=== PATIENT | female | born 1935 | race Caucasian/White ===

== ENCOUNTER 2018-05-05 06:41 | Inpatient (IN) | payer MEDICARE ==
[~2018-05-05] VITALS: Ht 167.6 cm; Wt 72.1 kg
[~2018-05-05 06:41] MED LIST: AMIO200 PO; AMLO10 PO; ASCO500 PO; ASPI81EC PO; ATOR40TA PO; Aspirin EC81 MG PO; Benicar40 MG PO; CALCIT950 PO; CARV6.25 PO; CHLO25B PO; CLON.1 PO; CLON.2 PO; DILT120 PO; DOC250 PO; ERGO400 PO; FERSU250ER PO; FLUSAL2505 IH; FURO20 PO; HYDACE5325 PO; LEVFLO500 PO; METO25ER PO; METO50 PO; MULTIVITAMIN; OLME20 PO; OMEP40CA12 PO; PANT40 PO; PRAV20 PO; PRED20 PO; PRENATAL MULTI1 EAC3 PO; SIMV40 PO; THIA100 PO; ZOLP5 PO
[2018-05-05] MEDS ORDERED: OLME20 PO (07:10)
[2018-05-05] MEDS ORDERED: PANT40 PO (07:10)
[2018-05-05] MEDS ORDERED: NIFE90ER PO (07:10)
[2018-05-05] MEDS ORDERED: FURO40 PO (07:11)
[2018-05-05] MEDS ORDERED: Pravastatin Sod40 MG PO (07:12)
[2018-05-05] MEDS ORDERED: Hair, Skin & N1 EACH PO (07:12)
[2018-05-05] MEDS ORDERED: CALCA400CH (07:14)
[2018-05-05 07:43] LABS: BASOPHILS ABSOLUTE AUTO 0.02 K/mm3 (0.00-0.23); BASOPHILS PERCENT AUTO 0 % (0-2); EOSINOPHILS ABSOLUTE AUTO 0.02 K/mm3 (0.00-0.68); EOSINOPHILS PERCENT AUTO 0 % (0-6); Hemoglobin 13.6 g/dL (11.5-16.0); IMMATURE GRAN ABSOLUTE AUTO 0.02 K/mm3 (0.00-0.10); IMMATURE GRAN PERCENT AUTO 0 % (0-1); LYMPHOCYTES ABSOLUTE AUTO 0.47 K/mm3 (0.84-5.20); LYMPHOCYTES PERCENT AUTO 7 % (21-46); MONOCYTES ABSOLUTE AUTO 0.66 K/mm3 (0.16-1.47); MONOCYTES PERCENT AUTO 9 % (4-13); Mean Corpuscular HGB 31.9 pg (26.0-34.0); Mean Corpuscular Volume 94 fL (80-100); Mean Platelet Volume 10.5 fL (9.1-12.4); NEUTROPHILS ABSOLUTE AUTO 5.82 K/mm3 (1.96-9.15); NEUTROPHILS PERCENT AUTO 83 % (41-73); Platelet Count 187 K/mm3 (150-400); RDW Coefficient Variation 13.4 % (11.7-14.2); RDW Standard Deviation 46.4 fL (35.1-46.3); Red Blood Cell Count 4.26 M/mm3 (3.80-5.20); White Blood Cell Count 7.01 K/mm3 (4.00-11.30)
[2018-05-05 08:02] LABS: Alanine Aminotransfer (ALT/SGP 22 U/L (12-78); Albumin, Blood 3.8 g/dL (3.4-5.0); Alk Phos 85 U/L (50-136); Anion Gap 10 mmol/L (6-16); Aspartate Aminotrans (AST/SGOT 24 U/L (12-37); Bilirubin, Total 0.6 mg/dL (0.1-1.0); Blood Urea Nitrogen 19 mg/dL (8-24); CO2, Blood 23 mmol/L (21-32); Calcium, Blood 9.2 mg/dL (8.5-10.1); Chloride, Blood 105 mmol/L (98-108); Creatinine, Blood 0.83 mg/dL (0.40-1.00); Glomerular Filtration Rate >60 (60-); Glucose, Blood 110 mg/dL (70-99); Potassium, Blood 2.9 mmol/L (3.5-5.5); Sodium, Blood 138 mmol/L (136-145); Total Protein, Blood 7.8 g/dL (6.4-8.2)
[2018-05-05 08:45] LABS: Source, Urine Clean Catch
[2018-05-05 08:48] LABS: Bilirubin, Urine Neg (Neg); Blood, Urine 3+ (Neg); Glucose Qualitative, Urine Neg (Neg); Ketones, Urine 3+ (Neg); Leukocyte Esterase, Urine 3+ (Neg); Nitrite, Urine Pos (Neg); Protein, Urine 2+ (Neg); Urobilinogen, Urine NORM (Normal)
[2018-05-05 08:57] LABS: Appearance, Urine Hazy (Clear); Color, Urine Yellow (P-Yellow)
[2018-05-05 09:12] LABS: Granular Casts 0-2 /lpf (0)
[2018-05-05 09:25] LABS: Hyaline Casts Rare /lpf (0-2)
[2018-05-05 09:28] LABS: Bacteria Many /hpf
[2018-05-05 09:35] LABS: White Blood Cells, Urine 25-50 /hpf (0-5)
[2018-05-05 09:42] LABS: Squamous Epithelial Cells Mod /hpf (Few)
[2018-05-05 09:43] LABS: Mucus Light (0-Heavy)
[2018-05-05] MEDS ORDERED: METO50 PO (13:26)
[2018-05-05] MEDS ORDERED: DOCU100 PO (13:31)
--- NOTE | 2018-05-05 18:20 | NUR ---
SHIFT SUMMARY PT HAS DONE WELL SINCE ARRIVAL TO UNIT. ABD MILD DISTENTION, SOFT HYPOACTIVE BOWEL TONES. K-RIDER RUNNING IVP. HAS HAD NO NAUSEA SINCE ARRIVAL TO UNIT. NPO SINCE ARRIVAL TO UNIT. SURGICAL CONSULT CALLED TO DR ALMANZA ANSWERING SERVICE.
[2018-05-06 04:36] LABS: BASOPHILS ABSOLUTE AUTO 0.02 K/mm3 (0.00-0.23); BASOPHILS PERCENT AUTO 1 % (0-2); EOSINOPHILS ABSOLUTE AUTO 0.01 K/mm3 (0.00-0.68); EOSINOPHILS PERCENT AUTO 0 % (0-6); Hematocrit 39.5 % (33.0-51.0); IMMATURE GRAN ABSOLUTE AUTO 0.01 K/mm3 (0.00-0.10); IMMATURE GRAN PERCENT AUTO 0 % (0-1); LYMPHOCYTES ABSOLUTE AUTO 0.89 K/mm3 (0.84-5.20); LYMPHOCYTES PERCENT AUTO 21 % (21-46); MONOCYTES ABSOLUTE AUTO 0.68 K/mm3 (0.16-1.47); MONOCYTES PERCENT AUTO 16 % (4-13); Mean Corpuscular HGB 32.3 pg (26.0-34.0); Mean Corpuscular HGB Conc 32.9 g/dL (31.5-36.5); Mean Platelet Volume 10.6 fL (9.1-12.4); NEUTROPHILS ABSOLUTE AUTO 2.67 K/mm3 (1.96-9.15); NEUTROPHILS PERCENT AUTO 62 % (41-73); Platelet Count 161 K/mm3 (150-400); RDW Coefficient Variation 13.9 % (11.7-14.2); RDW Standard Deviation 50.1 fL (35.1-46.3); Red Blood Cell Count 4.03 M/mm3 (3.80-5.20); White Blood Cell Count 4.28 K/mm3 (4.00-11.30)
[2018-05-06 04:46] LABS: Mean Corpuscular Volume 98 fL (80-100)
[2018-05-06 04:52] LABS: Magnesium, Blood 2.1 mg/dL (1.6-2.4)
[2018-05-06 04:54] LABS: Alanine Aminotransfer (ALT/SGP 21 U/L (12-78); Albumin, Blood 3.2 g/dL (3.4-5.0); Albumin/Globulin Ratio 0.9 (0.8-1.8); Alk Phos 68 U/L (50-136); Anion Gap 10 mmol/L (6-16); Aspartate Aminotrans (AST/SGOT 24 U/L (12-37); Bilirubin, Total 0.3 mg/dL (0.1-1.0); Blood Urea Nitrogen 10 mg/dL (8-24); Bun/Creatinine Ratio 13.9 (12.0-20.0); CO2, Blood 21 mmol/L (21-32); Calcium, Blood 8.4 mg/dL (8.5-10.1); Chloride, Blood 111 mmol/L (98-108); Creatinine, Blood 0.72 mg/dL (0.40-1.00); Globulin, Blood 3.4 g/dL (2.2-4.0); Glomerular Filtration Rate >60 (60-); Glucose, Blood 75 mg/dL (70-99); Phosphorus, Blood 2.7 mg/dL (2.5-4.9); Sodium, Blood 142 mmol/L (136-145); Total Protein, Blood 6.6 g/dL (6.4-8.2)
--- NOTE | 2018-05-06 05:33 | NUR ---
SUMMARY: NO ACUTE CHANGE TONIGHT. ELEVATED BP AT SHIFT START AND TELE APPLIED IN ORDER TO GIVE IV LOPRESSOR. PT ASYMPTOMATIC, VSS THIS AM. 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 SEE TELE STRIPS IN PT CHART. PT NSR, HR 70'S THIS AM. PT HAS DENIED N/V, PAIN. DID HAVE 1 LIQUID BM, UNABLE TO COLLECT. IV FLUIDS INFUSING. NO SAFETY CONCERNS AT THIS TIME.
--- NOTE | 2018-05-06 18:09 | NUR ---
SHIFT SUMMARY PT KEPT NPO EXCEPT FEW ICE CHIPS. URINE OUTPUT INCREASED IN AFTERNOON. PLEASANT AND COOPERATIVE.
--- NOTE | 2018-05-07 07:20 | NUR ---
pt sitting up on edge of the bed getting a neb tx exp wheezing and harsh cough pain to chest with cough req pain meds when avail
--- NOTE | 2018-05-07 07:55 | NUR ---
increased b/p iv lopressor given early will recheck pt denies nausea at this time reports passing flatus and has had some yellow runny small amts of stool scant not enough for a sample pt stated will attempt to give po meds this am and recheck b/p if still high will give hydralizine
--- NOTE | 2018-05-07 09:35 | NUR ---
pt done eating breakfast meds given
--- NOTE | 2018-05-07 10:30 | NUR ---
dr manuel by to see pt rx called to [facility] no acute changes iv d/c'd pt has portable o2 to take with home pt wanting to walk to car vs wc
[2018-05-07 10:55] LABS: Anion Gap 13 mmol/L (6-16); Blood Urea Nitrogen 5 mg/dL (8-24); Bun/Creatinine Ratio 10.8 (12.0-20.0); CO2, Blood 21 mmol/L (21-32); Calcium, Blood 7.9 mg/dL (8.5-10.1); Chloride, Blood 104 mmol/L (98-108); Creatinine, Blood 0.46 mg/dL (0.40-1.00); Glomerular Filtration Rate >60 (60-); Glucose, Blood 86 mg/dL (70-99); Phosphorus, Blood 2.8 mg/dL (2.5-4.9); Potassium, Blood 2.7 mmol/L (3.5-5.5); Sodium, Blood 138 mmol/L (136-145)
--- NOTE | 2018-05-07 12:30 | NUR ---
pt having abd cramps and pain with cl diet instructed pt to eat slowly sips and bites
--- NOTE | 2018-05-07 13:00 | NUR ---
dr chahal by to see pt
--- NOTE | 2018-05-07 14:22 | NUR ---
pt in the shower
[2018-05-08 05:00] LABS: Anion Gap 10 mmol/L (6-16); Blood Urea Nitrogen 5 mg/dL (8-24); Bun/Creatinine Ratio 7.9 (12.0-20.0); CO2, Blood 24 mmol/L (21-32); Calcium, Blood 8.3 mg/dL (8.5-10.1); Chloride, Blood 108 mmol/L (98-108); Creatinine, Blood 0.64 mg/dL (0.40-1.00); Glomerular Filtration Rate >60 (60-); Glucose, Blood 86 mg/dL (70-99); Potassium, Blood 2.9 mmol/L (3.5-5.5); Sodium, Blood 142 mmol/L (136-145)
--- NOTE | 2018-05-08 05:57 | NUR ---
SUMMARY NO DISTRESS TONIGHT. IV SL AFTER K RIDER INFUSED. NO BM TONIGHT.NO C/O NAUSEA. HAS TOLERATED CLR LIQ PO SO FAR. VOIDING.
--- NOTE | 2018-05-08 07:13 | NUR ---
pt oob to bathroom void only stated during the night only passing flatus no nausea abd soft hyperactive bt's x4 req coffee this am if ok with
--- NOTE | 2018-05-08 11:24 | NUR ---
adv pt diet to full liq for lunch iv kcl infusing coffee given instructed pt to stop if she has nausea and call me
--- NOTE | 2018-05-08 12:55 | NUR ---
PT ELIZABETH FL LINCH NO ABD CRAMPING OR NAUSEA PT STATED SHE HAS MORE FLATUS
--- NOTE | 2018-05-08 13:18 | NUR ---
DR REED BY TO SEE PT
--- NOTE | 2018-05-08 19:11 | NUR ---
pt had loose bm sent to lab no abd cramp or nausea
[2018-05-08 21:39] LABS: Enteropathogenic E. coli-EPEC Detected (NOT DETECT); Rotavirus A Detected (NOT DETECT)
[2018-05-08 21:40] LABS: Adenovirus F 40/41 Not Detected (NOT DETECT); Astrovirus Not Detected (NOT DETECT); Campylobacter Sp Not Detected (NOT DETECT); Cryptosporidium Not Detected (NOT DETECT); Cyclospora Cayetanensis Not Detected (NOT DETECT); E. Coli O157 Not Detected (NOT DETECT); Entamoeba Histolytica Not Detected (NOT DETECT); Enteroaggregative E. coli-EAEC Not Detected (NOT DETECT); Enterotoxigenic E. coli-ETEC Not Detected (NOT DETECT); Giardia Lamblia Not Detected (NOT DETECT); Norovirus GI/GII Not Detected (NOT DETECT); Plesiomonas Shigelloides Not Detected (NOT DETECT); Salmonella Sp Not Detected (NOT DETECT); Sapovirus Not Detected (NOT DETECT); Shiga Toxin-prod E. coli-STEC Not Detected (NOT DETECT); Shigella/Enteroin E. coli-EIEC Not Detected (NOT DETECT); Vibrio Cholerae Not Detected (NOT DETECT); Vibrio Sp Not Detected (NOT DETECT); Yersinia Enterocolitica Not Detected (NOT DETECT)
--- NOTE | 2018-05-09 05:26 | NUR ---
PT VSS T/O NIGHT. PT DENIED ABD PAIN, ELIZABETH REG PO, NO C/O N/V. PT IS PASSING FLATUS AND LIQ STOOL. C-DIFF NOTED POS+. PT UP IN ROOM W/SBA,DOES REP OCC DIZZINESS WHEN UP. PT USING CALL LIGHT FOR ASSISTANCE, WILL CONT TO MONITOR UNTIL REP GIVEN TO ONCOMING RN.
[2018-05-09 12:28] LABS: Anion Gap 9 mmol/L (6-16); Blood Urea Nitrogen 8 mg/dL (8-24); Bun/Creatinine Ratio 12.1 (12.0-20.0); CO2, Blood 23 mmol/L (21-32); Calcium, Blood 8.4 mg/dL (8.5-10.1); Chloride, Blood 110 mmol/L (98-108); Creatinine, Blood 0.66 mg/dL (0.40-1.00); Glomerular Filtration Rate >60 (60-); Glucose, Blood 102 mg/dL (70-99); Phosphorus, Blood 2.9 mg/dL (2.5-4.9); Potassium, Blood 3.6 mmol/L (3.5-5.5); Sodium, Blood 142 mmol/L (136-145)
--- NOTE | 2018-05-09 18:23 | NUR ---
SHIFT SUMMARY PT HAS BEEN UPBEAT. BEGAN TX FOR C-DIFF. FEW LOOSE BM'S. TOLERATING DIET WELL.
[2018-05-10 11:53] LABS: Albumin, Blood 3.3 g/dL (3.4-5.0); Anion Gap 9 mmol/L (6-16); Blood Urea Nitrogen 9 mg/dL (8-24); Bun/Creatinine Ratio 13.7 (12.0-20.0); CO2, Blood 27 mmol/L (21-32); Calcium, Blood 8.8 mg/dL (8.5-10.1); Chloride, Blood 107 mmol/L (98-108); Creatinine, Blood 0.66 mg/dL (0.40-1.00); Glomerular Filtration Rate >60 (60-); Glucose, Blood 103 mg/dL (70-99); Phosphorus, Blood 2.9 mg/dL (2.5-4.9); Potassium, Blood 3.5 mmol/L (3.5-5.5); Sodium, Blood 143 mmol/L (136-145)
[2018-05-10] MEDS ORDERED: [UNRECOGNIZED DRUG - CODE] PO (14:43)
[2018-05-10] MEDS ORDERED: [UNRECOGNIZED DRUG - CODE] PO (14:45)
--- NOTE | 2018-05-11 05:27 | NUR ---
SUMMARY: ADMIT DAY 7 FOR SBO, CDIFF AND UTI POSITIVE FOLLOWED BY [facility]. VSS, AFEBRILE, ROOM AIR. PT TOLERATING LOW FIBER DIET AND HAD 2 SMALL MUCOUS LIKE STOOLS THIS SHIFT. URINE APPEARS DARK BUT CLEAR. DENIES ABD CRAMPING, NAUSEA OR PAIN. CONTINUE ANTIBIOTICS FOR CDIFF AND UTI; MAINTAIN ISOLATION PRECAUTIONS.
[2018-05-11 12:27] LABS: Albumin, Blood 3.6 g/dL (3.4-5.0); Anion Gap 9 mmol/L (6-16); Blood Urea Nitrogen 11 mg/dL (8-24); CO2, Blood 26 mmol/L (21-32); Calcium, Blood 8.8 mg/dL (8.5-10.1); Chloride, Blood 105 mmol/L (98-108); Creatinine, Blood 0.78 mg/dL (0.40-1.00); Glomerular Filtration Rate >60 (60-); Glucose, Blood 121 mg/dL (70-99); Phosphorus, Blood 3.3 mg/dL (2.5-4.9); Potassium, Blood 3.6 mmol/L (3.5-5.5); Sodium, Blood 140 mmol/L (136-145)
--- NOTE | 2018-05-12 06:30 | NUR ---
SUMMARY PT WITH NOC/O ABD PAIN TONIGHT.NO STOOLS THIS SHIFT.
[2018-05-12 11:23] LABS: Albumin, Blood 3.2 g/dL (3.4-5.0); Anion Gap 6 mmol/L (6-16); Blood Urea Nitrogen 14 mg/dL (8-24); Bun/Creatinine Ratio 16.4 (12.0-20.0); CO2, Blood 27 mmol/L (21-32); Calcium, Blood 8.5 mg/dL (8.5-10.1); Chloride, Blood 109 mmol/L (98-108); Creatinine, Blood 0.85 mg/dL (0.40-1.00); Glomerular Filtration Rate >60 (60-); Glucose, Blood 104 mg/dL (70-99); Phosphorus, Blood 2.9 mg/dL (2.5-4.9); Potassium, Blood 3.7 mmol/L (3.5-5.5); Sodium, Blood 142 mmol/L (136-145)
[2018-05-12] MEDS ORDERED: OLME20 PO (12:25)
[2018-05-12] MEDS ORDERED: CEFP50SU PO (12:28)
[2018-05-12] MEDS ORDERED: SACC250C PO (12:29)
--- NOTE | 2018-05-12 15:30 | NUR ---
PATIENT D/C'D HOME WITH DAUGHTER AT THIS TIME; BOTH STATE UNDERSTANDING OF MEDS (FAXED TO [facility],) C DIFF PRECAUTIONS, F/U APPT, ETC.
== END 2018-05-12 15:32 | disposition home or self-care (01) | DRG 389 ==
LOC: ER 06:41 → SURS 09:03 → ERHOLD 09:03 → SURS 14:04
PROVIDERS: Emergency Medicine; Internal Medicine; Internal Medicine Endocrinology, Diabetes & Metabolism; ADMIT Hospitalist
DX: K56.609 Unspecified intestinal obstruction, unspecified as to partial versus complete obstruction (principal); A04.72 Enterocolitis due to Clostridium difficile, not specified as recurrent; N39.0 Urinary tract infection, site not specified; I10 Essential (primary) hypertension; K21.9 Gastro-esophageal reflux disease without esophagitis; B96.1 Klebsiella pneumoniae [K. pneumoniae] as the cause of diseases classified elsewhere; B96.20 Unspecified Escherichia coli [E. coli] as the cause of diseases classified elsewhere; E87.6 Hypokalemia; E78.5 Hyperlipidemia, unspecified; I65.29 Occlusion and stenosis of unspecified carotid artery; M06.9 Rheumatoid arthritis, unspecified; M81.0 Age-related osteoporosis without current pathological fracture; E78.00 Pure hypercholesterolemia, unspecified; Z87.440 Personal history of urinary (tract) infections; Z87.891 Personal history of nicotine dependence; Z79.82 Long term (current) use of aspirin; Z79.899 Other long term (current) drug therapy
CPT/HCPCS: 36415; 74022; 74177; 80048; 80053; 80069; 81001; 83735; 84100; 85025; 87077; 87086; 87186; 87324; 87507; 96361; 96365; 96366; 96372-59; 96375; 99285-25; C9113; J0360; J0696; J1650; J2405; J3480; J7030; J7120; Q9967

== ENCOUNTER 2018-08-29 11:19 | Emergency (ER) | payer MEDICARE, SELFPAY ==
[~2018-08-29] VITALS: Ht 152.4 cm; Wt 72.6 kg
[~2018-08-29 11:19] MED LIST changes: +CALCA400CH; +CEFP50SU PO; +DOCU100 PO; +FURO40 PO; +Hair, Skin & N1 EACH PO; +NIFE90ER PO; +Pravastatin Sod40 MG PO; +SACC250C PO; +[UNRECOGNIZED DRUG - CODE] PO; +[UNRECOGNIZED DRUG - CODE] PO
[2018-08-29 12:31] LABS: BASOPHILS ABSOLUTE AUTO 0.03 K/mm3 (0.00-0.23); BASOPHILS PERCENT AUTO 0 % (0-2); EOSINOPHILS ABSOLUTE AUTO 0.05 K/mm3 (0.00-0.68); EOSINOPHILS PERCENT AUTO 1 % (0-6); Hematocrit 40.8 % (33.0-51.0); Hemoglobin 13.8 g/dL (11.5-16.0); IMMATURE GRAN ABSOLUTE AUTO 0.01 K/mm3 (0.00-0.10); IMMATURE GRAN PERCENT AUTO 0 % (0-1); LYMPHOCYTES ABSOLUTE AUTO 2.58 K/mm3 (0.84-5.20); LYMPHOCYTES PERCENT AUTO 35 % (21-46); MONOCYTES PERCENT AUTO 9 % (4-13); Mean Corpuscular HGB 30.9 pg (26.0-34.0); Mean Corpuscular HGB Conc 33.8 g/dL (31.5-36.5); Mean Corpuscular Volume 91 fL (80-100); Mean Platelet Volume 10.3 fL (9.1-12.4); NEUTROPHILS ABSOLUTE AUTO 4.08 K/mm3 (1.96-9.15); NEUTROPHILS PERCENT AUTO 55 % (41-73); Platelet Count 225 K/mm3 (150-400); RDW Coefficient Variation 13.8 % (11.7-14.2); RDW Standard Deviation 46.5 fL (35.1-46.3); Red Blood Cell Count 4.47 M/mm3 (3.80-5.20); White Blood Cell Count 7.45 K/mm3 (4.00-11.30)
[2018-08-29 12:50] LABS: Alanine Aminotransfer (ALT/SGP 14 U/L (12-78); Alk Phos 86 U/L (50-136); Anion Gap 11 mmol/L (6-16); Aspartate Aminotrans (AST/SGOT 14 U/L (12-37); Bilirubin, Total 0.8 mg/dL (0.1-1.0); Blood Urea Nitrogen 14 mg/dL (8-24); Bun/Creatinine Ratio 17.5 (12.0-20.0); CO2, Blood 23 mmol/L (21-32); Calcium, Blood 9.2 mg/dL (8.5-10.1); Chloride, Blood 107 mmol/L (98-108); Globulin, Blood 3.9 g/dL (2.2-4.0); Glomerular Filtration Rate >60 (60-); Glucose, Blood 96 mg/dL (70-99); Potassium, Blood 3.3 mmol/L (3.5-5.5); Sodium, Blood 141 mmol/L (136-145); Total Protein, Blood 7.9 g/dL (6.4-8.2); Troponin I <0.015 ng/mL (0.000-0.040)
[2018-08-29] MEDS ORDERED: OLME20 PO (13:05)
== END 2018-08-29 13:29 | disposition home or self-care (01) ==
LOC: ER 11:19
PROVIDERS: Emergency Medicine
DX: F41.9 Anxiety disorder, unspecified (principal); R06.4 Hyperventilation; I13.0 Hypertensive heart and chronic kidney disease with heart failure and stage 1 through stage 4 chronic kidney disease, or unspecified chronic kidney disease; I50.30 Unspecified diastolic (congestive) heart failure; N18.3 Chronic kidney disease, stage 3 (moderate); Z87.891 Personal history of nicotine dependence; Z79.82 Long term (current) use of aspirin; Z79.899 Other long term (current) drug therapy; Z88.8 Allergy status to other drugs, medicaments and biological substances
CPT/HCPCS: 80053; 84484; 85025; 93005; 93010; 99283-25

== ENCOUNTER 2021-03-04 20:35 | Emergency (ER) | payer MEDICARE ==
[~2021-03-04] VITALS: Ht 165.1 cm; Wt 68.0 kg
[2021-03-04 20:52] LABS: BASOPHILS ABSOLUTE AUTO 0.03 K/mm3 (0.00-0.23); BASOPHILS PERCENT AUTO 0 % (0-2); EOSINOPHILS ABSOLUTE AUTO 0.14 K/mm3 (0.00-0.68); EOSINOPHILS PERCENT AUTO 2 % (0-6); Hematocrit 38.5 % (33.0-51.0); Hemoglobin 13.1 g/dL (11.5-16.0); IMMATURE GRAN ABSOLUTE AUTO 0.02 K/mm3 (0.00-0.10); IMMATURE GRAN PERCENT AUTO 0 % (0-1); LYMPHOCYTES ABSOLUTE AUTO 3.08 K/mm3 (0.84-5.20); LYMPHOCYTES PERCENT AUTO 39 % (21-46); MONOCYTES ABSOLUTE AUTO 0.75 K/mm3 (0.16-1.47); MONOCYTES PERCENT AUTO 10 % (4-13); Mean Corpuscular Volume 94 fL (80-100); Mean Platelet Volume 10.4 fL (9.1-12.4); NEUTROPHILS ABSOLUTE AUTO 3.79 K/mm3 (1.96-9.15); NEUTROPHILS PERCENT AUTO 49 % (41-73); Platelet Count 191 K/mm3 (150-400); RDW Coefficient Variation 13.6 % (11.7-14.2); RDW Standard Deviation 46.9 fL (35.1-46.3); White Blood Cell Count 7.81 K/mm3 (4.00-11.30)
[2021-03-04 21:06] LABS: International Normalized Ratio 0.99; Prothrombin Time Results 10.4 Sec (9.7-11.5)
[2021-03-04 21:12] LABS: Source, Urine Voided
[2021-03-04 21:14] LABS: Alanine Aminotransfer (ALT/SGP 19 U/L (12-78); Albumin, Blood 3.4 g/dL (3.4-5.0); Albumin/Globulin Ratio 0.9 (0.8-1.8); Alk Phos 55 U/L (50-136); Anion Gap 8 mmol/L (6-16); Aspartate Aminotrans (AST/SGOT 20 U/L (12-37); Bilirubin, Total 0.4 mg/dL (0.1-1.0); Blood Urea Nitrogen 15 mg/dL (8-24); Bun/Creatinine Ratio 18.9 (12.0-20.0); CO2, Blood 28 mmol/L (21-32); Calcium, Blood 9.1 mg/dL (8.5-10.1); Chloride, Blood 107 mmol/L (98-108); Creatinine, Blood 0.79 mg/dL (0.40-1.00); Ethanol (Alcohol), Blood, Med 202 mg/dL; Globulin, Blood 3.8 g/dL (2.2-4.0); Glomerular Filtration Rate >60 (60-); Glucose, Blood 112 mg/dL (70-99); Potassium, Blood 3.2 mmol/L (3.5-5.5); Sodium, Blood 143 mmol/L (136-145); Total Protein, Blood 7.2 g/dL (6.4-8.2)
[2021-03-04 21:15] LABS: Bilirubin, Urine Neg (Neg); Blood, Urine 2+ (Neg); Glucose Qualitative, Urine Neg (Neg); Ketones, Urine Neg (Neg); Leukocyte Esterase, Urine 3+ (Neg); Nitrite, Urine Pos (Neg); Protein, Urine 1+ (Neg); Specific Gravity, Urine 1.005 (1.003-1.022); Urobilinogen, Urine NORM (Normal)
[2021-03-04 21:24] LABS: Appearance, Urine Hazy (Clear); Color, Urine Pale Yellow (P-Yellow)
[2021-03-04 21:26] LABS: Bacteria Many /hpf; Red Blood Cells, Urine 0-2 /hpf (0-2); Squamous Epithelial Cells Few /hpf (Few)
[2021-03-04 21:27] LABS: Other Crystals Many /hpf
[2021-03-05] MEDS ORDERED: CEPH500 PO (00:04)
== END 2021-03-05 01:30 | disposition home or self-care (01) ==
LOC: ER 20:35
PROVIDERS: Emergency Medicine
DX: S06.0X9A Concussion with loss of consciousness of unspecified duration, initial encounter (principal); S00.01XA Abrasion of scalp, initial encounter; N39.0 Urinary tract infection, site not specified; W19.XXXA Unspecified fall, initial encounter
CPT/HCPCS: 70450; 71045; 72125; 80053; 81001; 85025; 85610; 87077; 87086; 87186; G0480; J0696

== ENCOUNTER 2022-09-17 10:31 | Emergency (ER) | payer MEDICARE ==
[~2022-09-17] VITALS: Ht 162.6 cm; Wt 59.0 kg
[2022-09-17 13:44] VITALS: BP 124/67
== END 2022-09-17 14:00 | disposition home or self-care (01) ==
LOC: ER 10:31
DX: R06.82 Tachypnea, not elsewhere classified (principal); I10 Essential (primary) hypertension; Z88.8 Allergy status to other drugs, medicaments and biological substances; Z79.82 Long term (current) use of aspirin; Z79.899 Other long term (current) drug therapy; Z87.891 Personal history of nicotine dependence; R09.02 Hypoxemia
CPT/HCPCS: 71045; 71260; 80053; 83880; 84484; 85025; 85379; 93005; 93010; 99285-25; Q9967

== ENCOUNTER → 2022-09-17 | Outpatient (CLI) | payer MEDICARE ==
[~2022-09-17] MED LIST changes: +CEPH500 PO
[2022-09-17 10:20] LABS: BASOPHILS ABSOLUTE AUTO 0.03 K/mm3 (0.00-0.23); BASOPHILS PERCENT AUTO 0 % (0-2); EOSINOPHILS ABSOLUTE AUTO 0.05 K/mm3 (0.00-0.68); EOSINOPHILS PERCENT AUTO 1 % (0-6); Hematocrit 39.6 % (33.0-51.0); Hemoglobin 13.8 g/dL (11.5-16.0); IMMATURE GRAN ABSOLUTE AUTO 0.02 K/mm3 (0.00-0.10); IMMATURE GRAN PERCENT AUTO 0 % (0-1); LYMPHOCYTES ABSOLUTE AUTO 2.59 K/mm3 (0.84-5.20); LYMPHOCYTES PERCENT AUTO 31 % (21-46); MONOCYTES ABSOLUTE AUTO 0.77 K/mm3 (0.16-1.47); MONOCYTES PERCENT AUTO 9 % (4-13); Mean Corpuscular HGB 32.5 pg (26.0-34.0); Mean Corpuscular HGB Conc 34.8 g/dL (31.5-36.5); Mean Corpuscular Volume 93 fL (80-100); Mean Platelet Volume 10.8 fL (9.1-12.4); NEUTROPHILS ABSOLUTE AUTO 4.94 K/mm3 (1.96-9.15); NEUTROPHILS PERCENT AUTO 59 % (41-73); Platelet Count 297 K/mm3 (150-400); RDW Coefficient Variation 13.6 % (11.7-14.2); Red Blood Cell Count 4.25 M/mm3 (3.80-5.20)
[2022-09-17 10:30] LABS: Albumin, Blood 3.3 g/dL (3.4-5.0); Albumin/Globulin Ratio 0.9 (0.8-1.8); Bilirubin, Total 0.4 mg/dL (0.1-1.0); Bun/Creatinine Ratio 34.3 (12.0-20.0); Calcium, Blood 9.5 mg/dL (8.5-10.1); Creatinine, Blood 1.78 mg/dL (0.40-1.00); Globulin, Blood 3.8 g/dL (2.2-4.0); Potassium, Blood 5.6 mmol/L (3.5-5.5); Total Protein, Blood 7.1 g/dL (6.4-8.2)
== END | disposition home or self-care (01) ==
LOC: LAB SHORT 10:16 → LAB 10:16
PROVIDERS: Emergency Medicine
DX: R09.02 Hypoxemia (principal)
CPT/HCPCS: 80053; 83880; 84484; 85025

== ENCOUNTER 2024-01-23 13:57 | Emergency (ER) | payer MEDICARE ==
[~2024-01-23] VITALS: Ht 162.6 cm; Wt 61.2 kg
[2024-01-23 14:54] LABS: BASOPHILS ABSOLUTE AUTO 0.03 K/mm3 (0.00-0.23); BASOPHILS PERCENT AUTO 0 % (0-2); EOSINOPHILS PERCENT AUTO 0 % (0-6); Hematocrit 40.1 % (33.0-51.0); IMMATURE GRAN ABSOLUTE AUTO 0.04 K/mm3 (0.00-0.10); IMMATURE GRAN PERCENT AUTO 0 % (0-1); LYMPHOCYTES ABSOLUTE AUTO 1.27 K/mm3 (0.84-5.20); LYMPHOCYTES PERCENT AUTO 10 % (21-46); MONOCYTES ABSOLUTE AUTO 0.69 K/mm3 (0.16-1.47); MONOCYTES PERCENT AUTO 6 % (4-13); Mean Corpuscular HGB 31.3 pg (26.0-34.0); Mean Corpuscular HGB Conc 32.4 g/dL (31.5-36.5); Mean Corpuscular Volume 97 fL (80-100); Mean Platelet Volume 10.5 fL (9.1-12.4); NEUTROPHILS ABSOLUTE AUTO 10.19 K/mm3 (1.96-9.15); NEUTROPHILS PERCENT AUTO 84 % (41-73); Platelet Count 152 K/mm3 (150-400); RDW Coefficient Variation 13.2 % (11.7-14.2); RDW Standard Deviation 46.9 fL (35.1-46.3); Red Blood Cell Count 4.15 M/mm3 (3.80-5.20); White Blood Cell Count 12.22 K/mm3 (4.00-11.30)
[2024-01-23 14:56] LABS: Influenza A, PCR NEGATIVE (NEGATIVE); Influenza B, PCR NEGATIVE (NEGATIVE); Resp Syncytial Virus, PCR NEGATIVE (NEGATIVE)
[2024-01-23 14:58] LABS: SARS-Cov-2 (COVID-19) PCR, MMC POSITIVE (NEGATIVE)
[2024-01-23 15:11] LABS: Albumin, Blood 3.5 g/dL (3.4-5.0); Albumin/Globulin Ratio 0.8 (0.8-1.8); Bilirubin, Total 0.7 mg/dL (0.1-1.0); Bun/Creatinine Ratio 21.1 (12.0-20.0); Creatinine, Blood 1.33 mg/dL (0.40-1.00); Globulin, Blood 4.2 g/dL (2.2-4.0); Magnesium, Blood 1.9 mg/dL (1.6-2.4); Total Protein, Blood 7.7 g/dL (6.4-8.2)
[2024-01-23] MEDS ORDERED: NS 500 ML IV SCH (15:30)
[2024-01-23 17:30] VITALS: BP 152/80
[2024-01-23] MEDS ORDERED: NIRMATRELVIR UD SCH ×2 (18:00→21:00)
[2024-01-23] MEDS ORDERED: RITONAVIR UD SCH ×2 (18:00→21:00)
[2024-01-23] MEDS ORDERED: NIRMATRELVIR PO SCH (21:00)
[2024-01-23] MEDS ORDERED: RITONAVIR PO SCH (21:00)
== END 2024-01-23 17:45 | disposition home or self-care (01) ==
LOC: ER 13:57
PROVIDERS: Physician Assistant
DX: U07.1 COVID-19 (principal); E86.0 Dehydration; I10 Essential (primary) hypertension; Z79.82 Long term (current) use of aspirin; Z79.899 Other long term (current) drug therapy; Z88.8 Allergy status to other drugs, medicaments and biological substances
CPT/HCPCS: 0241U; 71046; 80053; 83735; 83880; 84484; 85025; 93005; 93010; 96360; 99285-25; J7030

== ENCOUNTER 2024-09-12 08:44 | Emergency (ER) | payer MEDICARE ==
[~2024-09-12] VITALS: Ht 157.5 cm; Wt 54.4 kg
[2024-09-12 10:15] LABS: BASOPHILS ABSOLUTE AUTO 0.03 K/mm3 (0.00-0.23); BASOPHILS PERCENT AUTO 0 % (0-2); EOSINOPHILS ABSOLUTE AUTO 0.03 K/mm3 (0.00-0.68); EOSINOPHILS PERCENT AUTO 0 % (0-6); Hematocrit 39.9 % (33.0-51.0); Hemoglobin 13.4 g/dL (11.5-16.0); IMMATURE GRAN ABSOLUTE AUTO 0.01 K/mm3 (0.00-0.10); IMMATURE GRAN PERCENT AUTO 0 % (0-1); LYMPHOCYTES ABSOLUTE AUTO 1.33 K/mm3 (0.84-5.20); LYMPHOCYTES PERCENT AUTO 16 % (21-46); MONOCYTES ABSOLUTE AUTO 0.93 K/mm3 (0.16-1.47); MONOCYTES PERCENT AUTO 11 % (4-13); Mean Corpuscular HGB Conc 33.6 g/dL (31.5-36.5); Mean Corpuscular Volume 93 fL (80-100); NEUTROPHILS ABSOLUTE AUTO 6.10 K/mm3 (1.96-9.15); NEUTROPHILS PERCENT AUTO 72 % (41-73); NRBC ABSOLUTE 0.00 K/mm3 (0.00-0.02); NRBC Auto 0.0 /100 WBC (0.0-0.2); Platelet Count 220 K/mm3 (150-400); RDW Coefficient Variation 14.1 % (11.7-14.2); RDW Standard Deviation 47.7 fL (35.1-46.3)
[2024-09-12] MEDS ORDERED: Tetracaine HCl/Pf 0.5% Opth Soln 4 ml ONE (10:29)
[2024-09-12] MEDS ORDERED: Fluorescein Sod 1MG Opth Strips BOTHEYES ONE (10:35)
[2024-09-12 10:36] LABS: C-REACTIVE PROTEIN, EXT RANGE 6.65 mg/dL (0.000-0.300)
[2024-09-12 10:42] LABS: Alanine Aminotransfer (ALT/SGP 30.0 U/L (12-78); Albumin, Blood 3.5 g/dL (3.4-5.0); Albumin/Globulin Ratio 0.7 (0.8-1.8); Anion Gap 9.0 mmol/L (3-11); Aspartate Aminotrans (AST/SGOT 42.0 U/L (12-37); Bilirubin, Total 1.4 mg/dL (0.1-1.0); Blood Urea Nitrogen 21.0 mg/dL (8-24); CO2, Blood 27.0 mmol/L (21-32); Calcium, Blood 8.9 mg/dL (8.5-10.1); Chloride, Blood 105.0 mmol/L (98-108); Creatinine, Blood 0.79 mg/dL (0.40-1.00); Globulin, Blood 4.7 g/dL (2.2-4.0); Glucose, Blood 98.0 mg/dL (70-99); Potassium, Blood 5.3 mmol/L (3.5-5.5); Sodium, Blood 136.0 mmol/L (136-145); Total Protein, Blood 8.2 g/dL (6.4-8.2)
[2024-09-12 13:06] VITALS: BP 191/91
[2024-09-12] MEDS ORDERED: PRED5 PO (13:08)
[2024-09-12] MEDS ORDERED: ERYT.5TO LEFTEYE (13:08)
== END 2024-09-12 13:27 | disposition home or self-care (01) ==
LOC: ER 08:44
PROVIDERS: Student in an Organized Health Care Education/Training Program
DX: S05.02XA Injury of conjunctiva and corneal abrasion without foreign body, left eye, initial encounter (principal); R21 Rash and other nonspecific skin eruption; X58.XXXA Exposure to other specified factors, initial encounter; Z88.8 Allergy status to other drugs, medicaments and biological substances; Z79.899 Other long term (current) drug therapy; Z79.82 Long term (current) use of aspirin
CPT/HCPCS: 80053; 85025; 85651; 86140; 93005; 93010; 99283-25; A9270